=== PATIENT | male | born 1940 | race Caucasian/White ===

== ENCOUNTER 2024-02-28 11:36 | Day surgery (SDC) | payer OTHER ==
[~2024-02-28] VITALS: Ht 182.9 cm; Wt 72.7 kg
[2024-02-28] VITALS (7 sets, daily range): BP systolic 122–162; BP diastolic 63–83; PULSE 65–89; RESP 13–17; TEMP 97.9; O2SAT 95–100
[2024-02-28] MEDS ORDERED: fentaNYL/PF 50MCG/1 ML 2ML syringe ONE (12:09)
[2024-02-28] MEDS ORDERED: midazolam 1 mg/ML 2ml injection ONE (12:09)
[2024-02-28] MEDS ORDERED: verapamil 2.5 mg/ml inj IV ONE (12:09)
[2024-02-28] MEDS ORDERED: heparin 1,000unit/ml 10ml vial 10 ML ONE (12:09)
[2024-02-28] MEDS ORDERED: LIDOcaine 1% (10mg/ml) 2ml vial ONE (12:09)
[2024-02-28] MEDS ORDERED: iohexol 350MG/ML 100ml bottle IV ONE ×2 (12:11→13:41)
[2024-02-28] MEDS ORDERED: HYDR12.55 PO (12:13)
[2024-02-28] MEDS ORDERED: SIMV-42 PO (12:13)
[2024-02-28] MEDS ORDERED: CHOL100017 PO (12:13)
[2024-02-28] MEDS ORDERED: LISI5TAB22 PO (12:13)
[2024-02-28] MEDS ORDERED: nitroGLYCERIN 500mcg/5mL D5W 5 ML IV ONE (12:13)
[2024-02-28] MEDS ORDERED: MULT-1249 PO (12:13)
[2024-02-28] MEDS: diphenhydrAMINE 25mg capsule PO PRN (12:33)
[2024-02-28] MEDS: LORazepam 0.5 MG tablet PO PRN (12:33)
[2024-02-28] MEDS: normal saline 1,000 ML IV SCH (12:34)
[2024-02-28 12:46] LABS: BASOPHILS % (AUTO) 0.5 % (0-1); EOSINOPHILS # (AUTO) 0.2 X10'3 (0-0.9); EOSINOPHILS % (AUTO) 2.5 % (0-6); HEMATOCRIT 42.9 % (42.0-52.0); HEMOGLOBIN 14.5 g/dl (14.0-17.9); LYMPHOCYTES # (AUTO) 1.1 X10'3 (1.1-4.8); LYMPHOCYTES % (AUTO) 15.6 % (21-51); MEAN CORPUSCULAR HEMOGLOBIN 32.4 PG (27.0-31.0); MEAN CORPUSCULAR HGB CONC 33.7 g/dL (33.0-36.5); MEAN CORPUSCULAR VOLUME 96.1 FL (78-98); MEAN PLATELET VOLUME 9.5 FL (7.4-10.4); MONOCYTES # (AUTO) 0.9 X10'3 (0-0.9); MONOCYTES % (AUTO) 13.3 % (2-12); NEUTROPHILS # (AUTO) 4.8 X10'3 (1.8-7.7); NEUTROPHILS % (AUTO) 68.1 % (42-75); PLATELET COUNT 248 X10'3 (140-440); RED BLOOD COUNT 4.47 X10'6 (4.70-6.10); RED CELL DISTRIBUTION WIDTH 13.7 % (11.5-14.5)
[2024-02-28 13:06] LABS: APTT 27 SECONDS (22-32); INR 1.1 INR; PROTHROMBIN TIME 11.4 SECONDS (9.0-12.0)
[2024-02-28 13:18] LABS: ALBUMIN 3.8 G/DL (3.4-5.0); ANION GAP 10 (8-16); BLOOD UREA NITROGEN 29 MG/DL (7-18); CALCIUM 9.2 MG/DL (8.5-10.1); CHLORIDE 104 MMOL/L (99-107); CHOL/HDL RATIO 2.4 (0.00-4.99); CHOLESTEROL 135 MG/DL (0-200); CREATININE 1.26 MG/DL (0.60-1.10); GLUCOSE 76 MG/DL (70-104); HDL CHOLESTEROL 56 MG/DL (35-60); LDL CHOLESTEROL 64 MG/DL (50-100); POTASSIUM 3.8 MMOL/L (3.5-5.1); SODIUM 140 MMOL/L (135-145); TOTAL CARBON DIOXIDE 25.9 MMOL/L (24-32); TRIGLYCERIDES 49 MG/DL (20-135); eCRCL 45 ML/MIN; eGFR 55 ML/MIN
[2024-02-28] MEDS ORDERED: LIDOcaine 1% 30ml preserv. free vial ONE (13:27)
[2024-02-28 13:51] LABS: ISTAT HGB ART 12.9 g/dl (14.0-17.9); ISTAT Hct ART 38 %PCV (42-52); ISTAT O2 SATURATION ARTERIAL 96 % (95-98); ISTAT SOURCE ART
[2024-02-28 13:52] LABS: ISTAT HGB MIX 13.3 g/dl (14.0-17.9); ISTAT Hct MIX 39 %PCV (42-52); ISTAT O2 SATURATION MIX VENOUS 69 % (60-80); ISTAT SOURCE VEN
[2024-02-28] MEDS ORDERED: HYDROcodone/acetaminophen 10/325mg tab PO PRN (14:30)
[2024-02-28] MEDS ORDERED: HYDROcodone/acetaminophen 5mg/325mg tablet PO PRN (14:30)
== END 2024-02-28 16:00 | disposition home or self-care (01) ==
LOC: SSTAY O 11:36
PROVIDERS: ATTEND Student in an Organized Health Care Education/Training Program
DX: I35.0 Nonrheumatic aortic (valve) stenosis (principal); I25.10 Atherosclerotic heart disease of native coronary artery without angina pectoris; I49.1 Atrial premature depolarization; I10 Essential (primary) hypertension; E78.00 Pure hypercholesterolemia, unspecified; Z79.899 Other long term (current) drug therapy
CPT/HCPCS: 36415; 80048; 80061; 82803; 85014; 85025; 85610; 85730; 93005; 93456; 93571; 99152; 99153; A6258; J1644; J2250; J3010; J3490; J7030; Q0163; Q9967; 96360; A6402; C1751; C1769; C1894